=== PATIENT | female | born 1975 | race Hispanic/Latino ===

== ENCOUNTER 2025-03-04 18:21 | Emergency (ER) | payer OTHER ==
[~2025-03-04] VITALS: Ht 154.9 cm; Wt 56.7 kg
--- NOTE | 2025-03-04 18:34 | ERN ---
ED Note History of Present Illness Stated Complaint: N/V WEAKNESS Chief Complaint: Nausea,Vomiting,Diarrhea Time Seen by MD: 18:23 Time Seen by Midlevel: 18:24 Dictation: 49-year-old female presents to the emergency department due to reported having persistent nausea and vomiting that began earlier today. She reports having some chills but no confirmed fever associated with this. The patient denies having any abdominal pain or diarrhea. Currently, she states that she is not able to recall if she had contact it with anybody with similar symptoms. Patient states that she is concerned due to inability hold down any food or liqu ids. She states that she had a bilateral tubal ligation in the past. Upon initial evaluation, the patient presents mildly uncomfortable looking. Allergies: Coded Allergies: Penicillins (Unverified Allergy, Intermediate, 03/04/25) Emergency Care TABLET TESTER: None Past Medical History Past Medical History: Asthma, Hypertension, Other Additional Past Medical Hx: FATTY LIVER Surgical History: None RN Note Reviewed/Agreed w/PFSH: Yes Review of System Dictation Constitutional: Chills Abdomen/GI: Nausea, vomiting Initial Vital Sign VS Vital Signs Date Time Temp Pulse Resp B/P (MAP) Pulse Ox O2 Delivery O2 Flow Rate FiO2 03/04/25 18:23 99.7 109 20 154/102 97 Room Air 0 03/04/25 19:28 21 Physical Exam Dictation General: awake, alert, NAD Head/Face: Normocephalic, atraumatic Eyes: PERRL, EOMI ENT: Oral mucosa dry Neck: Trachea midline, supple Cardiovascular: RRR, no edema Respiratory: Symmetrical, non-labored Abdomen: Soft, non-tender, non-distended, no guarding. Skin: Warm, dry, good turgor, no rash MS/Extremity: Pulses equal, no cyanosis, neurovascular intact, FROM Neuro: COAx4, GCS 15, steady gait, Psych: Normal behavior, mood, and affect normal Results (Laboratory/Radiology) Laboratory/Radiology Laboratory Tests Test 03/04/25 18:25 White Blood Count 6.7 K/uL (4.8-10.8) Red Blood Count 3.53 MIL/uL (4.00-5.50) L Hemoglobin 12.3 g/dL (12.0-16.0) Hematocrit 35.3 % (36-48) L Mean Corpuscular Volume 100.0 fL (79-99) H Mean Corpuscular Hemoglobin 34.8 pg (27.0-33.0) H Mean Corpuscular Hemoglobin Concent 34.8 g/dL (32.0-36.0) Red Cell Distribution Width 11.9 % (11.0-15.5) Platelet Count 156 K/uL (130-400) Mean Platelet Volume 8.5 fL (7.5-10.5) Immature Granulocyte % (Auto) 0.4 % (0-1) Neutrophils (%) (Auto) 77.2 % (40.0-77.0) H Lymphocytes (%) (Auto) 15.9 % (21.0-51.0) L Monocytes (%) (Auto) 6.1 % (3.0-13.0) Eosinophils (%) (Auto) 0.0 % (0.0-8.0) Basophils (%) (Auto) 0.4 % (0.0-5.0) Neutrophils # (Auto) 5.2 K/uL (1.8-7.7) Lymphocytes # (Auto) 1.1 K/uL (1.0-4.8) Monocytes # (Auto) 0.4 K/uL (0.1-1.0) Eosinophils # (Auto) 0.00 K/uL (0.00-0.70) Basophils # (Auto) 0.03 K/uL (0.00-0.20) Absolute Immature Granulocyte (auto 0.03 K/uL (0-1) Nucleated Red Blood Cells 0.0 % (0.0-0.19) Sodium Level 136 mmol/L (136-145) Potassium Level 4.1 mmol/L (3.5-5.1) Chloride Level 95 mmol/L (101-111) L Carbon Dioxide Level 21 mmol/L (21-32) Blood Urea Nitrogen 17 mg/dL (7-18) Creatinine 0.9 mg/dL (0.5-1.0) Glomerular Filtration Rate Calc 78 mL/min (>90) Random Glucose 80 mg/dL (70-105) Total Calcium 9.6 mg/dL (8.5-10.1) Total Bilirubin 1.3 mg/dL (0.2-1.0) H Aspartate Amino Transf (AST/SGOT) 150 U/L (10-37) H Alanine Aminotransferase (ALT/SGPT) 102 U/L (12-78) H Alkaline Phosphatase 129 U/L (50-136) Total Protein 8.6 g/dL (6.0-8.3) H Albumin 3.7 g/dL (3.5-5.0) Influenza Type A Antigen Negative For Type A Influenza Type B Antigen Negative For Type B SARS-CoV-2 Antigen (Rapid) PRESUMPTIVE NEGATIVE Labs Reviewed?: Yes ED Course ED Course Orders Procedure Category Date Status Time Cbc With Differential LAB 03/04/25 Complete 18:29 Comprehensive LAB 03/04/25 Complete Metabolic Panel 18:29 Influenza Type A & B, LAB 03/04/25 Complete Rapid 18:29 Covid19 (Sars Antigen LAB 03/04/25 Complete Rapid) 18:29 Ondansetron 4mg Inj PHA 03/04/25 Complete (Zofran 4mg Inj) 18:30 0.9%Nacl 1000ml (Ns PHA 03/04/25 Complete 1000ml) 18:30 Pantoprazole 40mg Inj PHA 03/04/25 Complete (Protonix 40mg Inj 19:00 Ondansetron 4mg Inj PHA 03/04/25 Complete (Zofran 4mg Inj) 19:00 Promethazine Hcl PHA 03/04/25 Complete (Phenergan) 19:30 Famotidine 20mg Vial PHA 03/04/25 In Process (Pepcid 20mg Vial) 20:00 Current Medications Medications (Trade) Dose Ordered Sig/Jerry Route PRN Reason Start Time Stop Time Status Last Admin Dose Admin Famotidine (Pepcid 20mg Vial) 20 mg ONCE ONCE IV 03/04/25 20:00 03/04/25 20:01 03/04/25 19:46 Ondansetron HCl (zoFRAN 4MG INJ) 4 mg ONCE ONCE IVP 03/04/25 18:30 03/04/25 18:36 DC 03/04/25 18:41 Ondansetron HCl (zoFRAN 4MG INJ) 4 mg ONCE ONCE IVP 03/04/25 19:00 03/04/25 19:01 DC Pantoprazole Sodium (PROTonix 40MG INJ) 40 mg ONCE ONCE IVP 03/04/25 19:00 03/04/25 19:01 DC 03/04/25 18:41 Promethazine HCl (Phenergan) 25 mg ONCE ONCE IM 03/04/25 19:30 03/04/25 19:31 DC 03/04/25 19:18 Sodium Chloride 1,000 ml @ 0 mls/hr ONCE ONCE IV 03/04/25 18:30 03/04/25 18:36 DC 03/04/25 18:42 Vital Signs Date Time Temp Pulse Resp B/P (MAP) Pulse Ox O2 Delivery O2 Flow Rate FiO2 03/04/25 19:28 95 19 155/99 95 Room Air* 0 21 03/04/25 18:23 99.7 109 20 154/102 97 Room Air 0 Medical Decision Making MDM MDM: Differential diagnosis: Nausea vomiting, viral illness, acute gastroenteritis, electrolyte imbalance. Rationale: Tests considered and ordered secondary to shared decision making include: Previous outside records reviewed: Old ER visits. Risk of complication and/or morbidity or mortality of patient management: None Medications-Per medication reconciliation Need for hospitalization: Patient does not meet criteria for hospitalization. Need for emergency major/minor surgery: No There are no social concerns with this patient. Prescription drug management Prescriptions will include symptomatic care Patient's prior external medical records from other ER visits were reviewed by me as indicated. Prior testing and results from previous visits were reviewed. Prior tests were taken into account with medical decision making and resource utilization, independent historian/historians were used to obtain complete medical history. I independently interpreted the test that were performed, results were reviewed by me and considered findings on radiology if ordered. Medical management and examination interpretation discussions were had by me with other qualified healthcare professionals as indicated for the patient's care. DX & DISP Disposition: Discharge Departure Impression: Primary Impression: Nausea and vomiting Condition: Stable Scripts Ondansetron (Ondansetron Odt) 4 Mg Tab.rapdis 4 MG PO Q6HPRN PRN for nausea, #16 TAB 0 Refills Prov: SEAN DALE 03/04/25 Referrals: SELF,REFERRAL (PCP) SEAN DALE Mar 04, 2025 18:34
[2025-03-04 18:37] LABS: BASOPHILS # (AUTO) 0.03 K/uL (0.00-0.20); BASOPHILS % (AUTO) 0.4 % (0.0-5.0); HEMATOCRIT 35.3 % (36-48); IMMATURE GRANULOCYTE ABSOLUTE 0.03 K/uL (0-1); LYMPHOCYTES # (AUTO) 1.1 K/uL (1.0-4.8); LYMPHOCYTES % (AUTO) 15.9 % (21.0-51.0); MEAN CORPUSCULAR HEMOGLOBIN 34.8 pg (27.0-33.0); MEAN CORPUSCULAR HGB CONC 34.8 g/dL (32.0-36.0); MONOCYTES # (AUTO) 0.4 K/uL (0.1-1.0); MONOCYTES % (AUTO) 6.1 % (3.0-13.0); NEUTROPHILS # (AUTO) 5.2 K/uL (1.8-7.7); NEUTROPHILS % (AUTO) 77.2 % (40.0-77.0); PLATELET COUNT (AUTO) 156 K/uL (130-400); RED BLOOD CELL COUNT(AUTO) 3.53 MIL/uL (4.00-5.50); RED CELL DISTRIBUTION WIDTH 11.9 % (11.0-15.5); WHITE BLOOD COUNT (AUTO) 6.7 K/uL (4.8-10.8)
[2025-03-04] MEDS: ondanSETRON 4MG INJ IVP ONE ×2 (18:41→19:41)
[2025-03-04] MEDS: PANTOPrazole 40 MG/VIAL IVP ONE (18:41)
[2025-03-04] MEDS: 0.9%NACL 1000ML 1,000 ML IV ONE (18:42)
[2025-03-04 18:45] LABS: CREATININE 0.9 mg/dL (0.5-1.0); POTASSIUM 4.1 mmol/L (3.5-5.1)
[2025-03-04 18:50] LABS: ALBUMIN 3.7 g/dL (3.5-5.0); BILIRUBIN,TOTAL 1.3 mg/dL (0.2-1.0); TOTAL PROTEIN, SERUM 8.6 g/dL (6.0-8.3)
[2025-03-04 18:54] LABS: COVID19 (SARS ANTIGEN RAPID) PRESUMPTIVE NEGATIVE (NEGATIVE); INFLUENZA TYPE A Negative For Type A (NEGATIVE); INFLUENZA TYPE B Negative For Type B (NEGATIVE)
[2025-03-04] MEDS: PROMETHAZINE HCL 25 MG/ML 1ML AMPULE IM ONE (19:18)
[2025-03-04] MEDS: FAMOTIDINE 20MG VIAL IV ONE (19:46)
[2025-03-04] MEDS ORDERED: ONDA-243 PO (19:50)
[2025-03-04 20:37] VITALS: BP 116/68; PULSE 81; RESP 19; TEMP 98; O2SAT 97
[2025-03-04] MEDS ORDERED: PROM6.2527 PO (21:00)
== END 2025-03-04 21:02 | disposition home or self-care (01) ==
LOC: EDH 18:21
DX: R11.2 Nausea with vomiting, unspecified (principal); I10 Essential (primary) hypertension; J45.909 Unspecified asthma, uncomplicated; Z88.0 Allergy status to penicillin; Z20.822 Contact with and (suspected) exposure to COVID-19
CPT/HCPCS: 99284; 96374; 96375; 96361; 87426; 80053; 85025; 87804 ×2; 36415; 96372; J3490; J7030; J2550; J2405; J2470